=== PATIENT | male | born 1995 | race Caucasian/White ===

== ENCOUNTER 2016-10-21 23:01 | Emergency (ER) | payer OTHER ==
[~2016-10-21] VITALS: Ht 167.6 cm; Wt 94.0 kg
[2016-10-21 23:19] VITALS: Ht 167.6 cm; Wt 94.0 kg
[2016-10-22] MEDS ORDERED: IBUP-1542 PO (01:45)
[2016-10-22] MEDS ORDERED: CEPH-443 PO (01:45)
--- NOTE | 2016-10-22 01:53 | ERD ---
ER Documentation Chief Complaint Date/Time DATE: 10/22/16 TIME: 01:49 Chief Complaint laceration tip of left thumb while cutting meat at 2 pm HPI 21-year-old male presents here in emergency department for complaints of a skin avulsion wound the tip of the left thumb while cutting meat today. Its bleeding , complaining of pain, throbbing pain 6/10 scale, is worse upon touching the area. Patient is worried since the wound is bleeding. Patient denies any numbness or tingling. Patient denies any joint involvement or tendon involvement. Patient is able to move the joint of the left thumb without any restriction. Patient did not take any medications for pain. ROS All systems reviewed and are negative except as per history of present illness. Medications Home Meds Active Scripts Ibuprofen* (Motrin*) 600 Mg Tab, 600 MG PO Q6H Y for PAIN AND OR ELEVATED TEMP, #30 TAB Prov:ISAK GONZALEZ [employer] 10/22/16 Cephalexin* (Keflex*) 500 Mg Capsule, 500 MG PO QID for 7 Days, CAP Prov:ISAK GONZALEZ [employer] 10/22/16 Allergies Allergies: Coded Allergies: No Known Allergy (Unverified , 10/21/16) PMhx/Soc Unknown Last tetanus immunization Medical and Surgical Hx: pt denies Medical Hx, pt denies Surgical Hx Hx Alcohol Use: Yes (weekends only) Hx Substance Use: Yes (daily marijuana) Hx Tobacco Use: No Smoking Status: Never smoker FmHx Family History: No coronary disease, No diabetes, No other Physical Exam Vitals Vital Signs Date Time Temp Pulse Resp B/P Pulse Ox O2 Delivery O2 Flow Rate FiO2 10/21/16 23:19 98.7 62 20 151/74 97 Physical Exam GENERAL: The patient is well developed and appropriate for usual state of health, in no apparent distress. CHEST: Clear to auscultation bilaterally. There are no rales, wheezes or rhonchi. HEART: Regular rate and rhythm. No murmurs, clicks, rubs or gallops. No S3 or S4. ABDOMEN: Soft, nontender and nondistended. Good bowel sounds. No rebound or guarding. No gross peritonitis. No gross organomegaly or masses. No De Jesus sign or McBurney point tenderness. BACK: No midline or flank tenderness. EXTREMITIES: Able to do full range of motion of the left thumb without any or should she. Equal pulses bilaterally. There is no peripheral clubbing, cyanosis or edema. No focal swelling or erythema. Full range of motion. Grossly neurovascularly intact. NEURO: Alert and oriented. Cranial nerves 2-12 intact. Motor strength in all 4 extremities with 5/5 strength. Sensation grossly intact. Normal speech and gait. SKIN: Noted skin avulsion from the left thumb, no tendon involvement. There is no apparent rash or petechia. The skin is warm and dry. HEMATOLOGIC AND LYMPHATIC: There is no evidence of excessive bruising or lymphedema. No gross cervical, axillary, or inguinal lymphadenopathy. Results 24 hrs Current Medications Medications (Trade) Dose Ordered Sig/Paultete Route PRN Reason Start Time Stop Time Status Last Admin Dose Admin Diphtheria/ Tetanus/Acell Pertussis (Adacel) 0.5 ml ONCE ONCE IM* 10/22/16 02:00 10/22/16 02:01 Tdap was given to prevent tetanus. Patient tolerated medication well. Procedures/MDM Medical decision making: Patient's symptoms is consistent with the skin avulsion , the bleeding was controlled, no active bleeding at this time. Unable to repair or close the wound since the chunk of skin was not present any more. No symptoms of neurovascular compromise. No tendon involvement noted. Prescription was given for ibuprofen for pain and Keflex to prevent infection, was advised to follow with primary care doctor in 2 days for reevaluation of the wound. Patient is advised to return to emergency department for any worsening symptoms. Departure Diagnosis: Primary Impression: Skin avulsion Condition: Stable Patient Instructions: Skin Avulsion ISAK GONZALEZ NP Oct 22, 2016 01:52
[2016-10-22] MEDS ORDERED: DIPHTH/TET/ACEL PERTUSS (ADULT) 0.5 ML VIAL IM* ONE (02:00)
== END 2016-10-22 02:19 | disposition home or self-care (01) ==
LOC: FTE 23:01
DX: S61.012A Laceration without foreign body of left thumb without damage to nail, initial encounter (principal); W26.9XXA Contact with unspecified sharp object(s), initial encounter; Y92.9 Unspecified place or not applicable; Z23 Encounter for immunization
CPT/HCPCS: 29125; 90471; 90715; Z7502